=== PATIENT | male | born 1990 | race Caucasian/White ===

== ENCOUNTER 2016-09-22 11:34 | Emergency (ER) | payer SELFPAY ==
--- NOTE | 2016-09-22 12:26 | UC ---
Upper Extremity HPI - HPI Summary HPI Summary: 26 y/o male presents to the urgent care c/o of Left elbow pain for the past 3 weeks. Pt doesn't recall any injury. However, he remembered shoveling a lot when pain started. Pain is constant 7/10, specially with movement. sometimes he feels numbness of his LF fingers. Pt denies fever, SOB, CAMPA, chest pain, N/V/ D. Pt has not other complains. - History of Current Complaint Chief Complaint: UCUpperExtremity Stated Complaint: ELBOW COMPLAINT Time Seen by Provider: 09/22/16 12:25 Hx Obtained From: Patient Onset/Duration: Gradual Onset, Lasting Weeks, Still Present Severity Initially: Mild Severity Currently: Moderate Pain Intensity: 7 Pain Scale Used: 0-10 Numeric Location Of Pain: Is Discrete @ - at the left elbow Character: Sharp Aggravating Factor(s): Movement Alleviating Factor(s): Rest Associated Signs And Symptoms: Positive: Numbness/Tingling - of LF fingers - Risk Factors DVT Risk Factors: Negative Septic Arthritis Risk Factor: Negative Compartment Syndrome Risk Factors: Pain - Allergies/Home Medications Allergies/Adverse Reactions: Allergies Allergy/AdvReac Type Severity Reaction Status Date / Time No Known Allergies Allergy Verified 09/22/16 11:42 PMH/Surg Hx/FS Hx/Imm Hx Previously Healthy: Yes - Surgical History Surgical History: None - Family History Known Family History: Positive: None - Social History Occupation: Employed Full-time Lives: With Family Alcohol Use: Occasionally Substance Use Type: None Smoking Status (MU): Current Some Day Smoker Type: Cigarettes Have You Smoked in the Last Year: Yes Household Exposure Type: Cigarettes Review of Systems Constitutional: Negative Skin: Negative Eyes: Negative ENT: Negative Respiratory: Negative Cardiovascular: Negative Gastrointestinal: Negative Genitourinary: Negative Motor: Negative Neurovascular: Negative Musculoskeletal: Other: - Left elbow pain Neurological: Negative Psychological: Negative All Other Systems Reviewed And Are Negative: Yes Physical Exam Triage Information Reviewed: Yes Appearance: Well-Appearing, No Pain Distress, Well-Nourished, Ill-Appearing, Obese Vital Signs: Initial Vital Signs Temp 98.2 F 09/22/16 11:44 Pulse 68 09/22/16 11:44 Resp 14 09/22/16 11:44 BP 153/88 09/22/16 11:44 Pulse Ox 96 09/22/16 11:44 Vital Signs Reviewed: Yes Eye Exam: Normal Eyes: Positive: Conjunctiva Clear - PERRLA, EOMI, fundi grossly normal ENT Exam: Normal ENT: Positive: Normal ENT inspection, Hearing grossly normal, Pharynx normal, TMs normal Dental Exam: Normal Neck exam: Normal Neck: Positive: Supple, Nontender, No Lymphadenopathy Respiratory Exam: Normal Respiratory: Positive: Chest non-tender, Lungs clear, Normal breath sounds Cardiovascular Exam: Normal Cardiovascular: Positive: RRR, No Murmur, Pulses Normal, Brisk Capillary Refill Abdominal Exam: Normal Abdomen Description: Positive: Nontender, No Organomegaly, Soft. Negative: CVA Tenderness (R), CVA Tenderness (L) Bowel Sounds: Positive: Present Musculoskeletal: Positive: ROM Limited @ - Point tenderness at the lateral aspect of the epicondyle. Not swelling or erythema observed, limited ROM on flesion and extension due to pain, and during passive wrist flexion w/ elbow extended. Pulses, sensation, capillary refill intact and reflexes are intact. Strength is intact. Neurological Exam: Normal Psychological Exam: Normal Skin Exam: Normal Upper Extremity Course/Dx - Course Course Of Treatment: 26 y/o male presents to the urgent care c/o of Left elbow pain for the past 3 weeks. Pt doesn't recall any injury. However, he remembered shoveling a lot and after that pain started. Pain is constant 7/10, specially with movement. sometimes he feels numbness of his LF fingers. Pt denies fever, SOB, CAMPA, chest pain, N/V/D. Hx obtained. PE abnormal findings: Point tenderness at the lateral aspect of the left elbow. Not swelling or erythema observed, limited ROM due to pain,on flexion. Pulses, sensation, capillary refill intact and reflexes are intact. LF elbow x-ray ordered, Results: negative. Most lilkely an epincondylitis. Pt Rx Ibuprofen PO after meals to alleviate symptoms of pain and swelling. Advised RICE and elbow inmmobilized with a shoulder sling. F/u with PCP for further management. Pt's BP : 153/88. PT w/o HTN. Pt advised. PE abnormal findings: Point tenderness at the lateral aspect of the epicondyle. Not swelling or erythema observed, limited ROM on flexion and extension due to pain, and during passive wrist flexion w/ elbow extended. Pulses, sensation, capillary refill intact and reflexes are intact. Strength is intact. Left elbow X-ray ordered, Impression: Negative. Most likely an epicondylitis. Pt Rx ibuprofen prn and advised RICE and Pt elbow immobilized with a shoulder sling. PT BP: elevated today , advised to decrease salt in diet and monitor BP . Advised to f/u with PCP in referral center for further management. Pt understood and agreed. Left clinic ambulating. - Differential Dx/Diagnosis Differential Diagnosis/HQI/PQRI: Arthritis, Contusion, Fracture (Closed), Nursemaid's Elbow, Strain, Sprain, Other - epicondylitis, tendinopathy Provider Diagnoses: 1- Acute left elbow pain Discharge - Discharge Plan Condition: Stable Disposition: HOME Prescriptions: Ibuprofen TAB* [Motrin TAB* 800 MG] 800 mg PO Q6H #30 tab Patient Education Materials: Tennis Elbow (ED) Forms: *Work Release Referrals: No Primary Care Phys,NOPCP [Primary Care Provider] - [facility] [[facility]] - 1 Week Additional Instructions: Please take medications as directed after meals to alleviate pain and swelling. Apply ice, rest and f/u with a PCP form the [facility] for further management if symptoms persist or worsen. Please decrease salt in your diet and monitor your BP. F/u with your PCP for management in elevated BP.
--- NOTE | 2016-09-22 12:49 | RAD ---
INDICATION: Left elbow pain. TECHNIQUE: 4 views of the left elbow were obtained. FINDINGS: The bones are in normal alignment. No joint effusion or fracture is seen. Joint spaces appear maintained. IMPRESSION: NEGATIVE EXAM.
== END 2016-09-22 13:20 | disposition home or self-care (01) ==
LOC: UCEAST 11:34
DX: M25.522 Pain in left elbow (principal); F17.210 Nicotine dependence, cigarettes, uncomplicated
CPT/HCPCS: 99213; G0463

== ENCOUNTER 2018-10-12 12:24 | Emergency (ER) | payer BC ==
[2018-10-12 12:58] VITALS: BP 154/93
--- NOTE | 2018-10-12 13:23 | UC ---
Bite Injury/Animal HPI - HPI Summary HPI Summary: Patient is a 28-year-old male here after a bee sting. Patient received a bee sting to his right forearm yesterday. Today, patient's had worsening redness in his forearm. Patient's had no fever, chills, shortness of breath, throat tightness, vomiting, diarrhea. Patient has been doing Benadryl and ice for his staying with little relief. Patient has no numbness, tlngling, weakness Medications reviewed - History of Current Complaint Chief Complaint: UCGeneralIllness Stated Complaint: BEE STING A FEW DAYS AGO Time Seen by Provider: 10/12/18 13:07 Hx Obtained From: Patient Severity Currently: Moderate Severity Initially: Moderate Pain Intensity: 4 - Allergies/Home Medications Allergies/Adverse Reactions: Allergies Allergy/AdvReac Type Severity Reaction Status Date / Time No Known Allergies Allergy Verified 10/12/18 12:58 PMH/Surg Hx/FS Hx/Imm Hx Previously Healthy: Yes - Surgical History Surgical History: None - Family History Known Family History: Positive: None - Pt denies FMHX, Non-Contributory - Social History Alcohol Use: Occasionally Substance Use Type: None Smoking Status (MU): Heavy Every Day Tobacco Smoker Type: Cigarettes Amount Used/How Often: 1ppd Have You Smoked in the Last Year: Yes Household Exposure Type: Cigarettes - Immunization History Most Recent Influenza Vaccination: Not UTD Review of Systems All Other Systems Reviewed And Are Negative: Yes Constitutional: Negative: Fever, Chills Skin: Negative: Bruising Respiratory: Negative: Shortness Of Breath, Cough Cardiovascular: Negative: Palpitations Physical Exam - Summary Physical Exam Summary: Vital Signs Reviewed: Yes A+Ox3, no distress Eyes: Conjunctiva Clear ENT: Hearing grossly normal neck: supple Respiratory: Positive: No respiratory distress, No accessory muscle use Cardiovascular: skin color reflect adequate perfusion Musculoskeletal Exam: Right forearm is erythematous the antecubital fossa to the wrist. Rash is blanching. Centralized bee sting present. Radial pulse 2+ . Compartments are soft. Neurological: Positive: Alert, ambulatory without difficulty Vital Signs: Initial Vital Signs Temp 97.9 F 10/12/18 12:53 Pulse 84 10/12/18 12:53 Resp 18 10/12/18 12:53 BP 154/93 10/12/18 12:53 Pulse Ox 100 08/14/19 12:53 Bite Injury Course/Dx - Course Course Of Treatment: Patient is here 1 day after a bee sting. Patient has no evidence of anaphylaxis. Patient's rash and timing is not consistent with cellulitis. Patient is a 69 local reaction to the detox in. Patient was encouraged to continue using Benadryl and ice. Patient was also encouraged to add ibuprofen to his regimen and to elevate his arm. Patient's exam is not consistent with compartment syndrome. - Differential Dx/Diagnosis Differential Diagnosis/HQI/PQRI: Compartment Syndrome, Envenomation, Puncture, Superficial Infection, Deep Space Infection Provider Diagnosis: Bee sting reaction Discharge - Sign-Out/Discharge Documenting (check all that apply): Patient Departure All imaging exams completed and their final reports reviewed: No Studies - Discharge Plan Condition: Stable Disposition: HOME Patient Education Materials: Insect Bite or Sting (ED) Referrals: No Primary Care Phys,NOPCP [Primary Care Provider] - Additional Instructions: Please use Benadryl or itching Please use ibuprofen for pain Please elevate your arm at the end of the day or whenever you're resting Please use ice frequently on your arm Please return if you have any numbness, severe pain, weakness in your right arm - Billing Disposition and Condition Condition: STABLE Disposition: Home
== END 2018-10-12 13:30 | disposition home or self-care (01) ==
LOC: UCEAST 12:24
DX: T63.441A Toxic effect of venom of bees, accidental (unintentional), initial encounter (principal); Y92.9 Unspecified place or not applicable; F17.210 Nicotine dependence, cigarettes, uncomplicated
CPT/HCPCS: 99211; G0463